=== PATIENT | female | born 1990 | race Caucasian/White ===

== ENCOUNTER 2021-05-09 06:00 | Inpatient (IN) | payer BC ==
[2021-05-09] MEDS ORDERED: LIDOCAINE 0.5% (PF) 5 MG/ML (50 ML SDV) SQ PRN (06:21)
[2021-05-09] MEDS ORDERED: METHYLERGONOVINE 0.2 MG/ML 1 ML AMP IM PRN (06:21)
[2021-05-09] MEDS ORDERED: CARBOPROST TROMETHAMINE 250 MCG/ML 1 ML AMP IM PRN (06:21)
[2021-05-09] MEDS ORDERED: TERBUTALINE 1 MG/ML VIAL SQ PRN (06:21)
[2021-05-09] MEDS ORDERED: OXYTOCIN 10 UNIT/ML 1 ML VIAL IM PRN (06:21)
[2021-05-09] MEDS ORDERED: OXYTOCIN 30 UNITS/500 ML NS 30 UNIT in SALINE 1 500ML.BAG IV SCH ×2 (06:30→18:45)
[2021-05-09] MEDS ORDERED: LACTATED RINGERS 1,000 ML IV SCH (06:30)
[2021-05-09] MEDS: LACTATED RINGERS 1,000 ML IV SCH ×2 (06:32→14:00)
[2021-05-09 06:33] LABS: Basophils % (A) 0 %; Eosinophils # (A) 0.1 k/uL (0-0.7); Eosinophils % (A) 1 %; HCT 36.4 % (34.0-46.0); HGB 12.6 gm/dL (11.4-16.0); Lymphocytes # (A) 1.9 k/uL (1.0-4.8); Lymphocytes % (A) 18 %; MCH 34.5 pg (25.0-35.0); MCHC 34.6 g/dL (31.0-37.0); MCV 99.8 fL (80.0-100.0); Macrocytosis Slight; Mean Platelet Volume 7.9; Monocytes # (A) 0.6 k/uL (0-1.0); Monocytes % (A) 5 %; Neutrophils # (A) 7.4 k/uL (1.3-7.7); Neutrophils % (A) 73 %; Platelet Count 252 k/uL (150-450); Poikilocytosis Slight; RBC 3.65 m/uL (3.80-5.40); RDW 14.1 % (11.5-15.5); WBC 10.1 k/uL (3.8-10.6)
--- NOTE | 2021-05-09 11:29 | P.HPOB ---
History of Present Illness H&P Date: 05/09/21 Chief Complaint: IUP at 39 0/7 weeks 30-year-old at 39-0/7 weeks that presents to labor and delivery for induction of labor. Patient notes good movement, denies contractions or vaginal bleeding. Patient has been receiving routine care which has been essentially uncomplicated. On bloodwork this patient has a blood type of A+, rubella status i mmune, RPR nonreactive, B surface antigen negative, HIV negative. Group beta strep culture is negative on 04/17. Review of Systems Constitutional: Denies chills, Denies fatigue, Denies fever Ears, nose, mouth and throat: Denies headache Cardiovascular: Reports leg edema Respiratory: Denies dyspnea Gastrointestinal: Denies constipation, Denies diarrhea, Denies nausea, Denies vomiting Genitourinary: Reports Past Medical History Past Medical History: No Reported History History of Any Multi-Drug Resistant Organisms: None Reported Past Surgical History: No Surgical Hx Reported Past Anesthesia/Blood Transfusion Reactions: No Reported Reaction Past Psychological History: No Psychological Hx Reported Smoking Status: Never smoker Past Alcohol Use History: None Reported Past Drug Use History: None Reported - Past Family History Mother Family Medical History: No Reported History Medications and Allergies Home Medications Medication Instructions Recorded Confirmed Type Pnv,Calcium 72/Iron/Folic Acid 1 tab PO ONCE 05/09/21 05/09/21 History [ Plus Tablet] Allergies Allergy/AdvReac Type Severity Reaction Status Date / Time No Known Allergies Allergy Verified 05/09/21 06:18 Exam Osteopathic Statement: *. No significant issues noted on an osteopathic structural exam other than those noted in the History and Physical/Consult. 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 On cervical exam she is 4/70/-2 station amniotomy is performed and clear fluid was obtained. Heart tones noted to be category 1 and she is saad every 2 minutes. Results Result Diagrams: 05/09/21 06:20 Abnormal Lab Results - Last 24 Hours (Table) 05/09/21 Range/Units 06:20 RBC 3.65 L (3.80-5.40) m/uL Assessment and Plan (1) Term Current Visit: Yes Status: Acute Code(s): Z34.90 - ENCNTR FOR SUPRVSN OF NORMAL , UNSP, UNSP TRIMESTER SNOMED Code(s): 78618320 Plan: 30-year-old 1 para 0 at 39 0/7 weeks that presents to labor and delivery for induction of labor. Patient is counseled on options for analgesia during labor including epidural Stadol. She will consider. Pitocin induction of labor is begun per hospital protocol. Anticipate spontaneous vaginal delivery later today.
[2021-05-09] MEDS ORDERED: SODIUM CHLORIDE 0.9% 100 ML BAG ONE (12:59)
[2021-05-09] MEDS ORDERED: fentaNYL (PF) 50 MCG/ML 5 ML AMP ONE (12:59)
[2021-05-09] MEDS ORDERED: ROPIVACAINE 5MG/ML 20ML VIAL ONE (12:59)
[2021-05-09] MEDS ORDERED: diphenhydrAMINE 50 MG/ML 1 ML VIAL IVP PRN ×2 (18:36)
[2021-05-09] MEDS ORDERED: HYDROCORTISONE 2.5% RECTAL CREAM 30 GM TUBE RECTAL PRN (18:36)
[2021-05-09] MEDS ORDERED: LANOLIN CREAM 5 GM TUBE TOPICAL PRN (18:36)
[2021-05-09] MEDS ORDERED: diphenhydrAMINE 50 MG CAP PO PRN (18:36)
[2021-05-09] MEDS ORDERED: diphenhydrAMINE 25 MG CAP PO PRN (18:36)
[2021-05-09] MEDS ORDERED: ZOLPIDEM 5 MG TAB PO PRN (18:36)
[2021-05-09] MEDS ORDERED: SIMETHICONE 80 MG CHEWABLE PO PRN (18:36)
[2021-05-09] MEDS ORDERED: BENZOCAINE/MENTHOL SPRAY 1 GM/SPRAY AEROSOL TOPICAL PRN (18:36)
--- NOTE | 2021-05-09 18:42 | P.PROBDLV ---
Vaginal Delivery Note - . Vaginal Delivery Note: This is a 30-year-old 1 para 0 at 39-2/7 weeks that presented to labor and delivery for scheduled induction of labor. Patient was admitted to labor and delivery and was started on Pitocin for induction of labor per hospital protocol. Patient underwent amniotomy once regular contractions were appreciated. Clear fluid was obtained. Patient progressed in labor eventually becoming uncomfortable and requesting epidural placement. Epidural was placed without difficulty by the anesthesia department. Patient progressed to complete began pushing and had a normal spontaneous vaginal delivery of a viable male at 1813, weight of 7 lbs. 1 oz., Apgars of 9 and 9 at one and 5 minutes respectfully. After two-minute delay the umbilical cord was doubly clamped and cut. The placenta delivered spontaneously intact with a three-vessel cord being noted. On inspection the patient's vaginal vault a secondary midline laceration was appreciated. This laceration was repaired in the usual fashion with 3-0 Rapide. Instillation of lidocaine was performed prior to repair of the aspiration. The uterus was noted to be firm and below the umbilicus after delivery. Hemostasis was appreciated after repair was completed. Rectal exam was performed and found to be normal in nature. Estimated blood loss 200 mL, patient and infant tolerated delivery well and are resting comfortably. All counts were noted be correct 2 at the procedure.
[2021-05-09] MEDS ORDERED: PRENATAL VIT-IRON-FOLIC ACID 1 EACH CAP PO ONE (18:45)
[2021-05-09 19:41] VITALS: RESP 16
[2021-05-09] MEDS: IBUPROFEN 600 MG TAB PO PRN (21:10)
[2021-05-09] MEDS: SENNOSIDES-DOCUSATE SODIUM 1 EACH TAB PO SCH (21:10)
[2021-05-09] MEDS: ACETAMINOPHEN TAB 325 MG TAB PO PRN (23:34)
[2021-05-10] MEDS: IBUPROFEN 600 MG TAB PO PRN ×2 (03:11→14:49)
[2021-05-10] MEDS: ACETAMINOPHEN TAB 325 MG TAB PO PRN (05:51)
[2021-05-10] MEDS: SENNOSIDES-DOCUSATE SODIUM 1 EACH TAB PO SCH (08:38)
--- NOTE | 2021-05-10 11:44 | P.DS ---
Providers Date of admission: 05/09/21 06:09 Expected date of discharge: 05/10/21 Attending physician: Tessie Webb Primary care physician: Stated None - Discharge Diagnosis(es) (1) Term Current Visit: Yes Status: Acute (2) Status post vaginal delivery Current Visit: Yes Status: Acute (3) Obstetric vaginal laceration with second degree perineal laceration Current Visit: Yes Status: Acute Hospital Course: 30-year-old at 30 2/7 weeks that presented to labor and delivery yesterday for induction of labor. Patient had been receiving routine care which has been essentially uncomplicated. Patient was admitted to labor and delivery and Pitocin induction of labor was begun per hospital protocol. Once regular contractions were appreciated amniotomy is performed and clear fluid was obtained. Patient progressed in labor eventually becoming uncomfortable and did request epidural placement. Epidural difficulty by the anesthesia department. Patient progressed to complete began pushing and had a normal spontaneous vaginal infant at 1813, weight of 7 pounds 1 oz. patient did sustain a secondary midline vaginal laceration during delivery. This laceration was repaired without difficulty with 3-0 Rapide. Patient's postop course has been uneventful on this day #1 she is ambulating and voiding without difficulty. She is tolerating a regular diet without nausea or vomiting. She is bottle feeding. Patient Condition at Discharge: Good Plan - Discharge Summary New Discharge Prescriptions: No Action Pnv,Calcium 72/Iron/Folic Acid [ Plus Tablet] 1 tab PO ONCE Discharge Medication List Pnv,Calcium 72/Iron/Folic Acid [ Plus Tablet] 1 tab PO ONCE 05/09/21 [History] Follow up Appointment(s)/Referral(s): Tessie Webb DO [Doctor of Osteopathic Medicine] - 4 Weeks Patient Instructions/Handouts: Vaginal Delivery (GEN), Vaginal Delivery (DC) Activity/Diet/Wound Care/Special Instructions: Patient can expect menstrual-like bleeding for up to 6 weeks postdelivery. If she should have any concerns prior to her appointment she is urged to call the office. [id number] ibuprofen 600 mg as needed for pain for discomfort. Discharge Disposition: HOME SELF-CARE
[2021-05-10 12:51] VITALS: PULSE 80
[2021-05-10 18:51] VITALS: BP 120/68; TEMP 98.4
== END 2021-05-10 19:35 | disposition home or self-care (01) | DRG 807 ==
LOC: 4FBP 06:09
PROVIDERS: ADMIT Obstetrics & Gynecology Obstetrics; ATTEND Obstetrics & Gynecology Obstetrics
PROC: 10E0XZZ Delivery of Products of Conception, External Approach (ICD-10-PCS; principal; 2021-05-09)
PROC: 0KQM0ZZ Repair Perineum Muscle, Open Approach (ICD-10-PCS; 2021-05-09)
PROC: 10907ZC Drainage of Amniotic Fluid, Therapeutic from Products of Conception, Via Natural or Artificial Opening (ICD-10-PCS; 2021-05-09)
DX: O70.1 Second degree perineal laceration during delivery (principal); Z37.0 Single live birth; Z3A.39 39 weeks gestation of pregnancy
CPT/HCPCS: 85025; 86850; 86900; 86901

== ENCOUNTER 2023-03-30 19:53 | Emergency (ER) | payer BC ==
[2023-03-30 20:06] VITALS: TEMP 98.4
[2023-03-30 21:10] LABS: Basophils % (A) 0 %; Eosinophils # (A) 0.1 k/uL (0-0.7); Eosinophils % (A) 1 %; HCT 38.9 % (34.0-46.0); Lymphocytes # (A) 1.7 k/uL (1.0-4.8); Lymphocytes % (A) 24 %; MCH 31.4 pg (25.0-35.0); MCHC 33.4 g/dL (31.0-37.0); MCV 93.9 fL (80.0-100.0); Mean Platelet Volume 7.9; Monocytes # (A) 0.4 k/uL (0-1.0); Monocytes % (A) 5 %; Neutrophils # (A) 4.8 k/uL (1.3-7.7); Neutrophils % (A) 68 %; Platelet Count 243 k/uL (150-450); RBC 4.15 m/uL (3.80-5.40); RDW 12.4 % (11.5-15.5); WBC 7.1 k/uL (3.8-10.6)
--- NOTE | 2023-03-30 21:19 | ED ---
General Adult HPI - General Chief complaint: Shortness of Breath Stated complaint: Recheck/poss blood clot Time Seen by Provider: 03/30/23 20:18 Source: patient, RN notes reviewed Mode of arrival: ambulatory Limitations: no limitations - History of Present Illness Initial comments: 32-year-old female presents emergency from from urgent care for evaluation possible blood clot. Patient states she's been having symptoms lasted for days and which she had some chest tightness culture but states that she has anxiety and often has shortness of breath. Patient has no history DVT no history of PE. Denies leg pain or Leg swelling. Patient states she was seen in urgent care which made her more nervous presented here after recommendations. Patient state s she is due to fly back to [place]. Patient denies fevers or chills cough or cold like symptoms - Related Data Home Medications Medication Instructions Recorded Confirmed Vit No.180/Iron/Folic 1 tab PO ONCE 05/09/21 05/09/21 [ Plus Tablet] Allergies Allergy/AdvReac Type Severity Reaction Status Date / Time No Known Allergies Allergy Verified 05/09/21 06:18 Review of Systems ROS Statement: Those systems with pertinent positive or pertinent negative responses have been documented in the HPI. ROS Other: All systems not noted in ROS Statement are negative. Past Medical History Past Medical History: No Reported History History of Any Multi-Drug Resistant Organisms: None Reported Past Surgical History: No Surgical Hx Reported Past Anesthesia/Blood Transfusion Reactions: No Reported Reaction Past Psychological History: No Psychological Hx Reported Smoking Status: Never smoker Past Alcohol Use History: None Reported Past Drug Use History: None Reported - Past Family History Mother Family Medical History: No Reported History General Exam Limitations: no limitations General appearance: alert, in no apparent distress Head exam: Present: atraumatic, normocephalic, normal inspection Eye exam: Present: normal appearance, PERRL, EOMI. Absent: scleral icterus, conjunctival injection, periorbital swelling ENT exam: Present: normal exam, normal oropharynx, mucous membranes moist Neck exam: Present: normal inspection, full ROM. Absent: tenderness, meningismus, lymphadenopathy Respiratory exam: Present: normal lung sounds bilaterally. Absent: respiratory distress, wheezes, rales, rhonchi, stridor Cardiovascular Exam: Present: regular rate, normal rhythm, normal heart sounds. Absent: systolic murmur, diastolic murmur, rubs, gallop, clicks GI/Abdominal exam: Present: soft, normal bowel sounds. Absent: distended, tenderness, guarding, rebound, rigid Neurological exam: Present: alert Skin exam: Present: warm, dry, intact, normal color. Absent: rash Course Vital Signs 03/30/23 03/30/23 03/30/23 20:01 20:06 21:11 Temperature 98.4 F Pulse Rate 78 68 68 Respiratory 20 12 20 Rate Blood Pressure 158/86 120/68 138/64 O2 Sat by Pulse 99 98 98 Oximetry 03/30/23 03/30/23 22:02 22:19 Temperature Pulse Rate 60 60 Respiratory 16 16 Rate Blood Pressure 120/62 100/60 O2 Sat by Pulse 98 98 Oximetry EKG Findings - EKG Comments: EKG Findings:: EKG performed at 20:37 sinus rhythm rate of 71. TX 156, QRS 97 QT/QTC 393/416 - EKG Results: EKG: interpreted by AVELINO Medical Decision Making - Medical Decision Making Was pt. sent in by a medical professional or institution (, PA, SHOE REPAIRMAN, urgent care, hospital, or [facility]...) When possible be specific @ -[Urgent care Did you speak to anyone other than the patient for history (EMS, parent, family, police, friend...)? What history was obtained from this source @ -No Did you review nursing and triage notes (agree or disagree)? Why? @ -I reviewed and agree with nursing and triage notes Were old charts reviewed (outside hosp., previous admission, EMS record, old EKG, old radiological studies, urgent care reports/EKG's, [facility] records)? Report findings @ -No old charts were reviewed Differential Diagnosis (chest pain, altered mental status, abdominal pain women, abdominal pain men, vaginal bleeding, weakness, fever, dyspnea, syncope, headache, dizziness, GI bleed, back pain, seizure, CVA, palpatations, mental health, musculoskeletal)? @ -Differential Chest Pain: Stable Angina, Unstable Angina, STEMI, NSTEMI Aortic Dissection, Pneumothorax, Musculoskeletal, Esophageal Spasm GERD, Cholecystitis, Pancreatitis, Zoster, this is not meant to be an all-inclusive list. able EKG interpreted by me (3pts min.). @ -As above X-rays interpreted by me (1pt min.). @ -Chest x-ray shows no acute process CT interpreted by me (1pt min.). @ -None done U/S interpreted by me (1pt. min.). @ -None done What testing was considered but not performed or refused? (CT, X-rays, U/S, labs)? Why? @ -None What meds were considered but not given or refused? Why? @ -None Did you discuss the management of the patient with other professionals (professionals i.e. DrDaniel, PA, SHOE REPAIRMAN, lab, RT, psych nurse, social service worker, assistant professor of forestry, teacher, aerospace engineer officer armament, bilingual case manager)? Give summary @ -No Was smoking cessation discussed for >3mins.? @ -No Was critical care preformed (if so, how long)? @ -No Were there social determinants of health that impacted care today? How? (Homelessness, low income, unemployed, alcoholism, drug addiction, transportation, low edu. Level, literacy, decrease access to med. care, custodial, rehab)? @ -No Was there de-escalation of care discussed even if they declined (Discuss DNR or withdrawal of care, Hospice)? DNR status @ -No What co-morbidities impacted this encounter? (DM, HTN, Smoking, COPD, CAD, Cancer, CVA, ARF, Chemo, Hep., AIDS, mental health diagnosis, sleep apnea, morbid obesity)? @ -None Was patient admitted / discharged? Hospital course, mention meds given and route, prescriptions, significant lab abnormalities, going to OR and other pertinent info. @ -Discharge workup is negative patient has reproducible chest wall pain. Patient has has a negative d-dimer. Patient is discharged in stable condition patient feels comfortable discharge. Undiagnosed new problem with uncertain prognosis? @ -No Drug Therapy requiring intensive monitoring for toxicity (Heparin, Nitro, Insulin, Cardizem)? @ -No Were any procedures done? @ -No Diagnosis/symptom? @ -Atypical chest pain, chest wall pain Acute, or Chronic, or Acute on Chronic? @ -Acute Uncomplicated (without systemic symptoms) or Complicated (systemic symptoms)? @ -Uncomplicated Side effects of treatment? @ -No Exacerbation, Progression, or Severe Exacerbation? @ -No Poses a threat to life or bodily function? How? (Chest pain, USA, CT, pneumonia, PE, COPD, DKA, ARF, appy, cholecystitis, CVA, Diverticulitis, Homicidal, Suicidal, threat to staff... and all critical care pts) @ -No - Lab Data Result diagrams: 03/30/23 20:43 03/30/23 20:43 Lab Results 03/30/23 03/30/23 03/30/23 Range/Units 20:43 20:43 20:43 WBC 7.1 (3.8-10.6) k/uL RBC 4.15 (3.80-5.40) m/uL Hgb 13.0 (11.4-16.0) gm/dL Hct 38.9 (34.0-46.0) % MCV 93.9 (80.0-100.0) fL MCH 31.4 (25.0-35.0) pg MCHC 33.4 (31.0-37.0) g/dL RDW 12.4 (11.5-15.5) % Plt Count 243 (150-450) k/uL MPV 7.9 Neutrophils % 68 % Lymphocytes % 24 % Monocytes % 5 % Eosinophils % 1 % Basophils % 0 % Neutrophils # 4.8 (1.3-7.7) k/uL Lymphocytes # 1.7 (1.0-4.8) k/uL Monocytes # 0.4 (0-1.0) k/uL Eosinophils # 0.1 (0-0.7) k/uL Basophils # 0.0 (0-0.2) k/uL PT 9.8 (9.0-12.0) sec INR 0.9 (<1.2) APTT 22.7 (22.0-30.0) sec D-Dimer 0.33 (<0.60) mg/L FEU Sodium 138 (137-145) mmol/L Potassium 3.8 (3.5-5.1) mmol/L Chloride 105 (98-107) mmol/L Carbon Dioxide 24 (22-30) mmol/L Anion Gap 9 mmol/L BUN 21 H (7-17) mg/dL Creatinine 0.65 (0.52-1.04) mg/dL Est GFR (CKD-EPI)AfAm >90 (>60 ml/min/1.73 sqM) Est GFR (CKD-EPI)NonAf >90 (>60 ml/min/1.73 sqM) Glucose 95 (74-99) mg/dL Calcium 9.3 (8.4-10.2) mg/dL Magnesium 1.9 (1.6-2.3) mg/dL Total Bilirubin 0.3 (0.2-1.3) mg/dL AST 19 (14-36) U/L ALT 16 (4-34) U/L Alkaline Phosphatase 41 (38-126) U/L Troponin I (0.000-0.034) ng/mL Total Protein 7.4 (6.3-8.2) g/dL Albumin 4.3 (3.5-5.0) g/dL 03/30/23 Range/Units 20:43 WBC (3.8-10.6) k/uL RBC (3.80-5.40) m/uL Hgb (11.4-16.0) gm/dL Hct (34.0-46.0) % MCV (80.0-100.0) fL MCH (25.0-35.0) pg MCHC (31.0-37.0) g/dL RDW (11.5-15.5) % Plt Count (150-450) k/uL MPV Neutrophils % % Lymphocytes % % Monocytes % % Eosinophils % % Basophils % % Neutrophils # (1.3-7.7) k/uL Lymphocytes # (1.0-4.8) k/uL Monocytes # (0-1.0) k/uL Eosinophils # (0-0.7) k/uL Basophils # (0-0.2) k/uL PT (9.0-12.0) sec INR (<1.2) APTT (22.0-30.0) sec D-Dimer (<0.60) mg/L FEU Sodium (137-145) mmol/L Potassium (3.5-5.1) mmol/L Chloride (98-107) mmol/L Carbon Dioxide (22-30) mmol/L Anion Gap mmol/L BUN (7-17) mg/dL Creatinine (0.52-1.04) mg/dL Est GFR (CKD-EPI)AfAm (>60 ml/min/1.73 sqM) Est GFR (CKD-EPI)NonAf (>60 ml/min/1.73 sqM) Glucose (74-99) mg/dL Calcium (8.4-10.2) mg/dL Magnesium (1.6-2.3) mg/dL Total Bilirubin (0.2-1.3) mg/dL AST (14-36) U/L ALT (4-34) U/L Alkaline Phosphatase (38-126) U/L Troponin I <0.012 (0.000-0.034) ng/mL Total Protein (6.3-8.2) g/dL Albumin (3.5-5.0) g/dL Disposition Clinical Impression: Chest wall pain Disposition: HOME SELF-CARE Condition: Stable Instructions (If sedation given, give patient instructions): Chest Wall Pain (ED) Additional Instructions: Please return to the Emergency Department if symptoms worsen or any other concerns. Is patient prescribed a controlled substance at d/c from ED?: No Referrals: Kleber Beltran MD [Primary Care Provider] - 1-2 days Time of Disposition: 22:14
--- NOTE | 2023-03-30 21:21 | XR ---
EXAMINATION TYPE: XR chest 2V DATE OF EXAM: 03/30/2023 8:58 PM COMPARISON: None TECHNIQUE: XR chest 2V Frontal and lateral views of the chest. CLINICAL INDICATION:Female, 32 years old with history of Chest Pain; FINDINGS: Lungs/Pleura: There is no evidence of pleural effusion, focal consolidation, or pneumothorax. Pulmonary vascularity: Unremarkable. Heart/mediastinum: Cardiomediastinal silhouette is unremarkable. Musculoskeletal: No acute osseous pathology. IMPRESSION: No acute cardiopulmonary disease/process.
[2023-03-30 21:27] LABS: INR 0.9 (<1.2); Partial Thromboplastin Time 22.7 sec (22.0-30.0); Prothrombin Time 9.8 sec (9.0-12.0)
[2023-03-30 21:33] LABS: ALT 16 U/L (4-34); AST 19 U/L (14-36); African American GFR (CKD) >90 (>60 ml/min/1.73 sqM); Albumin 4.3 g/dL (3.5-5.0); Alkaline Phosphatase 41 U/L (38-126); Anion Gap 9 mmol/L; Blood Urea Nitrogen 21 mg/dL (7-17); Calcium 9.3 mg/dL (8.4-10.2); Carbon Dioxide 24 mmol/L (22-30); Chloride 105 mmol/L (98-107); Glucose 95 mg/dL (74-99); Magnesium 1.9 mg/dL (1.6-2.3); Non-African American GFR(CKD) >90 (>60 ml/min/1.73 sqM); Potassium 3.8 mmol/L (3.5-5.1); Sodium 138 mmol/L (137-145); Total Bilirubin 0.3 mg/dL (0.2-1.3); Total Protein 7.4 g/dL (6.3-8.2)
[2023-03-30 22:03] VITALS: PULSE 60; RESP 16
[2023-03-30 22:20] VITALS: BP 100/60
== END 2023-03-30 22:20 | disposition home or self-care (01) ==
LOC: EC 19:53
DX: R07.89 Other chest pain (principal)
CPT/HCPCS: 36415; 71046; 80053; 83735; 84484; 85025; 85379; 85610; 85730; 93005; 99285